=== PATIENT | female | born 1950 | race African-American/Black ===

== ENCOUNTER 2018-08-21 05:26 | Emergency (ER) | payer OTHER ==
[~2018-08-21] VITALS: Ht 147.3 cm; Wt 61.2 kg
[2018-08-21] MEDS ORDERED: MEDROLDOSEPACK PO (06:07)
[2018-08-21] MEDS ORDERED: COLCHICINE0.6 MG PO (06:07)
[2018-08-21] MEDS ORDERED: NORCO 5-325 TA1 EACH PO ×2 (06:14→06:17)
[2018-08-21 07:25] VITALS: BP 146/71
== END 2018-08-21 07:26 | disposition home or self-care (01) ==
LOC: ER 05:26
DX: M10.072 Idiopathic gout, left ankle and foot (principal); I10 Essential (primary) hypertension

== ENCOUNTER → 2020-01-02 | Outpatient (CLI) | payer OTHER ==
[~2020-01-02] MED LIST: COLCHICINE0.6 MG PO; MEDROLDOSEPACK PO; NORCO 5-325 TA1 EACH PO
== END ==
LOC: RAD 11:11
DX: M43.16 Spondylolisthesis, lumbar region (principal); M16.12 Unilateral primary osteoarthritis, left hip; M54.5 Low back pain; M47.816 Spondylosis without myelopathy or radiculopathy, lumbar region; M48.061 Spinal stenosis, lumbar region without neurogenic claudication